=== PATIENT | male | born 1965 | race Caucasian/White ===

== ENCOUNTER → 2025-05-09 | Outpatient (CLI) | payer OTHER ==
--- NOTE | 2025-05-10 10:36 | HMCIMG ---
Exam: RIGHT SHOULDER MRI WITHOUT IV CONTRAST. HISTORY:Shoulder pain. TECHNIQUE: Axial, coronal, and sagittal images of the shoulder were obtained. COMPARISON:None. FINDINGS: BONE MARROW:No fracture or avascular necrosis. ACROMIOCLAVICULAR JOINT:Mild osteoarthritis. BURSITIS:Moderate subacromial bursitis. ROTATOR CUFF TENDONS:Tendinosis with bursal sided fraying of the supraspinatus tendon. No tendon retraction. Additional tendinosis with low-grade interstitial tear of the subscapularis tendon at the footplate. BICEPS:Intra-articular tendinosis. Intact attachment on the superior glenoid. GLENOHUMERAL JOINT:Mild osteoarthritis. LABRAL LIGAMENTOUS COMPLEX:Mild degeneration without acute tear or perilabral cyst. ROTATOR INTERVAL:Unremarkable. CORACOACROMIAL AND CORACOCLAVICULAR LIGAMENTS:Intact. No visualized tears. MUSCLES:Normal signal characteristics and bulk without edema or atrophy. QUADRILATERAL SPACE:Normal without masses. IMPRESSION: Rotator cuff tendinosis with bursal sided fraying of the supraspinatus tendon and low-grade interstitial tear of the subscapularis tendon. No tendon retraction. Moderate subacromial bursitis. Mild acromioclavicular and glenohumeral osteoarthritis. Intra-articular biceps tendinosis. /[place]
== END | disposition home or self-care (01) ==
LOC: RAH 08:58
PROVIDERS: ATTEND Student in an Organized Health Care Education/Training Program
DX: M19.011 Primary osteoarthritis, right shoulder (principal); M75.41 Impingement syndrome of right shoulder; M67.813 Other specified disorders of tendon, right shoulder; M75.51 Bursitis of right shoulder; M25.511 Pain in right shoulder
CPT/HCPCS: 73221